=== PATIENT | male | born 2000 | race Caucasian/White ===

== ENCOUNTER 2022-06-06 17:12 | Emergency (ER) | payer OTHER ==
[~2022-06-06] VITALS: Ht 182.9 cm; Wt 68.0 kg
[2022-06-06 17:48] LABS: AMPHETAMINE SCREEN, URINE POSITIVE (NEGATIVE); BARBITURATE SCREEN URINE NEGATIVE (NEGATIVE); BENZODIAZEPINES SCREEN URINE NEGATIVE (NEGATIVE); CANNABINOID SCREEN, URINE POSITIVE (NEGATIVE); COCAINE SCREEN URINE NEGATIVE (NEGATIVE); METHADONE STAT NEGATIVE (NEGATIVE); OPIATE SCREEN URINE NEGATIVE (NEGATIVE); OXYCODONE STAT NEGATIVE (NEGATIVE); PROPOXYPHENE STAT NEGATIVE (NEGATIVE); TRICYCLIC ANTIDEPRESSANTS SCRE NEGATIVE (NEGATIVE)
--- NOTE | 2022-06-06 17:55 | ED General ---
General Stated Complaint: PARANOIA Source of Information: Patient Exam Limitations: No Limitations History of Present Illness Date Seen by Provider: Jun 06, 2022 Time Seen by Provider: 17:15 Initial Comments 22-year-old male presenting for a drug screen. He was requested to come by his PO. He states he believes the drug screen will be positive for methamphetamines and marijuana. He states he is little agitated and anxious like he typically would be. Denies any fever, chest pain, shortness of breath, abdominal pain, nausea, vomiting, diarrhea, weakness, numbness, or any other concerns. Denies any homicidal or suicidal ideation. He states he has a safe place to stay. Allergies and Home Medications Allergies Coded Allergies: No Known Drug Allergies (Unverified , 06/06/22) Patient Home Medication List Home Medication List Reviewed: Yes Review of Systems Review of Systems Constitutional: No fever EENTM: no symptoms reported Respiratory: no symptoms reported Cardiovascular: no symptoms reported Gastrointestinal: no symptoms reported Genitourinary: no symptoms reported Musculoskeletal: no symptoms reported Skin: no symptoms reported Psychiatric/Neurological: See HPI Hematologic/Lymphatic: No Symptoms Reported Immunological/Allergic: no symptoms reported All Other Systems Reviewed Negative Unless Noted: Yes Past Qyapepu-Clwkih-Pcdwju Hx Patient Social History Substance use?: Yes Past Medical History Surgeries: No Physical Exam Vital Signs Vital Signs - First Documented 06/06/22 06/06/22 17:19 17:59 Temp 36.4 Pulse 99 Resp 19 B/P (MAP) 117/87 (97) Pulse Ox 97 O2 Delivery Room Air Capillary Refill : Height, Weight, BMI Height: '" Weight: lbs. oz. kg; BMI Method: General Appearance: No Apparent Distress, WD/WN, Other (Fidgety) Eyes: Bilateral Eye Normal Inspection, Bilateral Eye PERRL HEENT: PERRL/EOMI, Normal ENT Inspection, Pharynx Normal Neck: Full Range of Motion, Normal Inspection, Non Tender, Supple Respiratory: Chest Non Tender, Lungs Clear, Normal Breath Sounds, No Accessory Muscle Use, No Respiratory Distress Cardiovascular: Regular Rate, Rhythm, No Edema, Normal Peripheral Pulses Gastrointestinal: Normal Bowel Sounds, Non Tender, Soft; No Distended, No Guarding Back: Normal Inspection, No CVA Tenderness, No Vertebral Tenderness Extremity: Normal Capillary Refill, Normal Inspection, Normal Range of Motion, Non Tender, No Calf Tenderness, No Pedal Edema Neurologic/Psychiatric: Alert, Oriented x3, No Motor/Sensory Deficits, Normal Mood/Affect Skin: Normal Color, Warm/Dry Lymphatic: No Adenopathy Progress/Results/Core Measures Suspected Sepsis SIRS Temperature: Pulse: Respiratory Rate: Blood Pressure / Mean: Results/Orders Lab Results Laboratory Tests Test 06/06/22 17:19 Range/Units Urine Opiates Screen NEGATIVE NEGATIVE Urine Oxycodone Screen NEGATIVE NEGATIVE Urine Methadone Screen NEGATIVE NEGATIVE Urine Propoxyphene Screen NEGATIVE NEGATIVE Urine Barbiturates Screen NEGATIVE NEGATIVE Ur Tricyclic Antidepressants Screen NEGATIVE NEGATIVE Urine Phencyclidine Screen NEGATIVE NEGATIVE Urine Amphetamines Screen POSITIVE H NEGATIVE Urine Methamphetamines Screen POSITIVE H NEGATIVE Urine Benzodiazepines Screen NEGATIVE NEGATIVE Urine Cocaine Screen NEGATIVE NEGATIVE Urine Cannabinoids Screen POSITIVE H NEGATIVE My Orders Orders - DEAN REYNA MD Drug Screen Stat (Urine) (06/06/22 17:26) Vital Signs/I&O 06/06/22 06/06/22 17:19 17:59 Temp 36.4 36.5 Pulse 99 95 Resp 19 19 B/P (MAP) 117/87 (97) 124/67 Pulse Ox 97 O2 Delivery Room Air Room Air Capillary Refill : Progress Note : Progress Note 22-year-old male presenting for a drug screen. ABCs were intact and vitals were stable on presentation. We discussed that this drug screen is not official and that it could not be held up in any type of court situation. It was positive for marijuana and methamphetamines. The patient states this is what he expected. He has no complaints at this time. Discharged home in stable condition with strict return precautions Departure Impression Primary Impression: Methamphetamine use Additional Impression: Marijuana use Disposition: 01 HOME, SELF-CARE Condition: Stable Departure-Patient Inst. Decision time for Depature: 17:54 Referrals: MOE RANGEL MD (PCP/Family) Primary Care Physician Patient Instructions: Drug Abuse and Drug Addiction (DC) Add. Discharge Instructions: Follow-up with your regular doctor, if you do not have 1, you can call [facility] [place]. If you have any life-threatening concerns you can always come back to the ER. Work/School Note: Work Release Form Date Seen in the Emergency Department: Jun 06, 2022 Return to Work: Jun 08, 2022 Restrictions: No Restrictions DEAN REYNA MD Jun 06, 2022 17:55
[2022-06-06 17:59] VITALS: BP 124/67
== END 2022-06-06 17:59 | disposition home or self-care (01) ==
LOC: ER FS 17:13
DX: F15.90 Other stimulant use, unspecified, uncomplicated (principal); F12.90 Cannabis use, unspecified, uncomplicated; Z28.310 Unvaccinated for COVID-19
CPT/HCPCS: 80306; 99281